=== PATIENT | male | born 1965 | race Caucasian/White ===

== ENCOUNTER → 2016-12-27 | Outpatient (CLI) | payer BC ==
[2015-11-02 16:36] VITALS: BP 145/87
[~2016-12-27] MED LIST: ALBUTEROL0.83 MG/ML IH; AMOXICILLIN 8751 TAB PO; HCTZ 25MG25 MG PO; LISINOPRIL40 MG PO; NORCO 325 MG-51 TA1 PO; NORCO 325 MG-51 TAB PO; TESSALON PERLE200 MG PO; TUSS PO; TUSSIN DM 10 M118 ML; ULTRAM 50MG TAB50 MG PO; ZOCOR 20MG20 MG
== END ==
LOC: RAD 09:52
DX: R06.02 Shortness of breath (principal); R05 Cough

== ENCOUNTER → 2017-01-15 | Outpatient (CLI) | payer BC ==
[~2017-01-15] VITALS: Ht 180.3 cm; Wt 93.2 kg
[2017-01-15 17:28] VITALS: BP 140/100
== END ==
LOC: AMSURD 17:21
DX: R00.2 Palpitations (principal)

== ENCOUNTER → 2017-01-16 | Outpatient (CLI) | payer BC ==
[2017-01-15 17:28] VITALS: BP 140/100
== END ==
LOC: RAD 11:01
DX: M25.511 Pain in right shoulder (principal)

== ENCOUNTER 2017-03-04 12:25 | Emergency (ER) | payer BC ==
[~2017-03-04] VITALS: Ht 180.3 cm; Wt 92.7 kg
[~2017-03-04 12:25] MED LIST changes: -NORCO 325 MG-51 TA1 PO
[2017-03-04] MEDS ORDERED: NORCO 325 MG-51 TA1 PO (13:46)
[2017-03-04 14:00] VITALS: BP 145/88
== END 2017-03-04 13:48 | disposition home or self-care (01) ==
LOC: ED 12:25
DX: R07.89 Other chest pain (principal); M79.622 Pain in left upper arm; I10 Essential (primary) hypertension; E78.5 Hyperlipidemia, unspecified; R42 Dizziness and giddiness

== ENCOUNTER 2018-01-06 14:48 | Inpatient (IN) | payer BC ==
[~2018-01-06] VITALS: Ht 180.3 cm; Wt 97.1 kg
[~2018-01-06 14:48] MED LIST changes: +ADVIL 200MG TA200 MG PO; +ASPIRIN E.C. 8181 MG PO; +CYCLOBENZAPRINE10 M1 PO; +EC-NAPROSYN500 MG PO; +NORCO 325 MG-51 TA1 PO
[2018-01-06 15:20] LABS: BASO # 0.1 (0.02-0.10); EOS # 0.1 (0.04-0.40); EOS % 1.4 % (0.0-4.0); HEMATOCRIT 45.2 % (42.0-52.0); HEMOGLOBIN 15.7 g/dL (13.5-18.0); LYMPH# 2.4 (1.50-4.00); MEAN CELL VOLUME 87 fl (78-100); MEAN CORPUSCULAR HEMOGLOBIN 30 pg (27-31); MEAN CORPUSCULAR HGB CONC 35 g/dL (33-37); MEAN PLATELET VOLUME 10.1 fl (7.4-10.4); MONO # 0.7 (0.20-0.80); NEU # 4.1 (1.40-6.50); PLATELET COUNT 293 K/mm3 (130-400); RED CELL DISTRIBUTION WIDTH 13.1 % (11.5-14.5); WHITE BLOOD COUNT 7.3 K/mm3 (4.8-10.8)
[2018-01-06] MEDS ORDERED: LOSARTAN POTAS100 MG PO (15:29)
[2018-01-06] MEDS ORDERED: TRAMADOL 50 MG TAB PO (15:29)
[2018-01-06 15:33] LABS: ALBUMIN 4.4 g/dL (3.5-5.0); BUN/CREATININE RATIO 9.3 (6.0-26.0); CALCIUM 8.8 mg/dL (8.4-10.2); POTASSIUM 3.7 mmol/L (3.6-5.0); TOTAL BILIRUBIN 0.9 mg/dL (0.2-1.3); TOTAL PROTEIN 8.2 g/dL (6.3-8.2)
[2018-01-06 17:00] VITALS: BP 142/106
[2018-01-06 17:14] VITALS: BP 142/106
--- NOTE | 2018-01-06 17:49 | NUR ---
Pt admitted to room 208. Oriented to room and surroundings. Pt reports pain is minimal and tolerable. IV fluids infusing as ordered. Pt updated on NPO status and plan care.
[2018-01-06 18:42] VITALS: BP 144/46
[2018-01-06 23:00] VITALS: BP 153/99
[2018-01-07] VITALS (7 sets, daily range): BP systolic 146–167; BP diastolic 87–102
[2018-01-07 07:04] LABS: URINE COLOR YELLOW
[2018-01-07 07:05] LABS: PH-URINE 5.5 (5.0 - 8.0); URINE APPEARANCE HAZY; URINE BILIRUBIN NEGATIVE (NEGATIVE); URINE BLOOD NEGATIVE (NEGATIVE); URINE GLUCOSE NEGATIVE (NEGATIVE); URINE KETONE NEGATIVE (NEGATIVE); URINE LEUKOCYTE ESTERASE NEGATIVE (NEGATIVE); URINE MUCUS PRESENT (NOT PRESENT); URINE NITRATE NEGATIVE (NEGATIVE); URINE PROTEIN(semi-quant) TRACE mg/dL (NEGATIVE); URINE UROBILINOGEN NORMAL (NORMAL)
--- NOTE | 2018-01-07 08:11 | NUR ---
Assessment complete. Patient resting in bed, c/o pain (headache) medication given, see EMAR. Bed in lowest position, call light within reach. Will cont to monitor.
[2018-01-07 08:19] LABS: BASO # 0.1 (0.02-0.10); EOS # 0.2 (0.04-0.40); EOS % 2.2 % (0.0-4.0); HEMATOCRIT 41.6 % (42.0-52.0); HEMOGLOBIN 14.6 g/dL (13.5-18.0); LYMPH# 2.1 (1.50-4.00); MEAN CELL VOLUME 88 fl (78-100); MEAN CORPUSCULAR HEMOGLOBIN 31 pg (27-31); MEAN CORPUSCULAR HGB CONC 35 g/dL (33-37); MEAN PLATELET VOLUME 10.9 fl (7.4-10.4); MONO # 0.5 (0.20-0.80); NEU # 3.8 (1.40-6.50); PLATELET COUNT 263 K/mm3 (130-400); RED BLOOD COUNT 4.72 M/mm3 (4.20-5.60); RED CELL DISTRIBUTION WIDTH 13.1 % (11.5-14.5); WHITE BLOOD COUNT 6.7 K/mm3 (4.8-10.8)
[2018-01-07 08:37] LABS: BUN/CREATININE RATIO 13.9 (6.0-26.0); CALCIUM 8.5 mg/dL (8.4-10.2); POTASSIUM 3.6 mmol/L (3.6-5.0)
--- NOTE | 2018-01-07 13:06 | NUR ---
Denies pain at this time. IVF cont into LFA. Able to voice wants/needs, none at this time. Patient up in chair eating at watching tv. Call light within reach. Will cont to monitor.
--- NOTE | 2018-01-07 18:37 | NUR ---
Bed side shift report given to LINDA Hodge. Patient safety checks performed at this time.
--- NOTE | 2018-01-07 18:54 | NUR ---
Bed side shift report given to LINDA Buck. Patient safety checks performed at this time.
--- NOTE | 2018-01-07 19:26 | NUR ---
Bedside shift report received from Hannah OG. Patient having abdominal pain at shift handoff. Center of abdomen near belly button. Tums taken. States it is somewhat better now. Was 02/13. IVF of LR infusing at 125 ML/HR. Site patent. BS + x all quads. Assessment completed. Reviewed medications available. Denies wants or needs. Bed alarm on. Call light in reach.
--- NOTE | 2018-01-07 20:05 | NUR ---
Ambulated in hallways. Requests analgesic. States pain is "just not going away". No nausea. 11/13. "like you got hit in the stomach with a baseball". States ambulation did not cause pain to increase, "actually it made it a little better". Denies further wants or needs.
--- NOTE | 2018-01-07 20:56 | NUR ---
Reports pain down to 07/16. Denies needs. Visiting with .
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
--- NOTE | 2018-01-07 23:59 | NUR ---
Report to Lindsay OG.
[2018-01-08 02:39] VITALS: BP 156/100
[2018-01-08 06:30] VITALS: BP 155/100
--- NOTE | 2018-01-08 08:35 | NUR ---
PATIENT WAS ABLE TO EAT ABOUT 50% OF BREAKFAST AND THEN STOPPED HIS ABDOMINAL PAIN WAS STARTING TO COME BACK, BEFORE BREAKFAST HE HAD NO ABDOMINAL PAIN, HE NOW C/O 5/10 TO MID ABDOMEN, TRAY REMOVED FROM ROOM AND PATIENT IS RESTING NOW IN RECLINER, DENIES ANY NAUSEA, WILL CONTINUE TO MONITOR
[2018-01-08] MEDS ORDERED: ACETAMINOPHEN-H1 TA2 PO (09:34)
[2018-01-08] MEDS ORDERED: ZOFRAN ODT8 M1 PO (09:35)
--- NOTE | 2018-01-08 09:59 | NUR ---
DISCHARGE INSTRUCTIONS DISCUSSED WITH PT. THIS NURSE EXPLAINS THE BRAT DIET TO PT AND THAT PT WILL HAVE TO SLOWLY INTRODUCE NEW FOODS. PT VERBALIZES UNDERSTANDING. ORDERED MEDICATIONS DISCUSSED, PT VERBALIZES UNDERSTANDING ON THE USE OF THESE MEDICATIONS. NO OTHER NEEDS NOTED AT THIS TIME. INSYTE REMOVED. PT DC'D TO HOME VIA AMBULATION.
--- NOTE | 2018-01-08 10:10 | NUR ---
PT FOUND SITTING UP IN CHAIR. STATES HE IS HAVING SLIGHT STOMACH PAIN RATED AT A 2/10 AT THIS TIME. C/O HEADACHE THAT HE BELIEVES IS RELATED TO CAFFINE. STATES THE EXCEDRIN HELPED A LITTLE BIT. DENIES ANY OTHER NEEDS AND IS READY TO GO HOME TODAY.
== END 2018-01-08 10:05 | disposition home or self-care (01) | DRG 390 ==
LOC: ED 14:48 → MED/SURG 16:42
PROVIDERS: ADMIT Physician Assistant
DX: K56.7 Ileus, unspecified (principal); I10 Essential (primary) hypertension
CPT/HCPCS: C9113; J1885; J3010; J7030; J7120

== ENCOUNTER → 2018-04-20 | Outpatient (CLI) | payer BC ==
[~2018-04-20] MED LIST changes: +ACETAMINOPHEN-H1 TA2 PO; +LOSARTAN POTAS100 MG PO; +TRAMADOL 50 MG TAB PO; +ZOFRAN ODT8 M1 PO
== END ==
LOC: RAD 11:02
DX: R05 Cough (principal)

== ENCOUNTER → 2019-11-09 | Outpatient (CLI) | payer BC | LOC: RAD 17:26 | DX: M18.12 Unilateral primary osteoarthritis of first carpometacarpal joint, left hand (principal); M85.48 Solitary bone cyst, other site ==

== ENCOUNTER → 2020-02-09 | Outpatient (CLI) | payer BC | LOC: RAD 12:09 | DX: R20.0 Anesthesia of skin (principal); M79.605 Pain in left leg; M25.562 Pain in left knee; M17.12 Unilateral primary osteoarthritis, left knee ==

== ENCOUNTER → 2020-02-18 | Outpatient (CLI) | payer BC | LOC: RAD 11:32 | DX: M47.816 Spondylosis without myelopathy or radiculopathy, lumbar region (principal); M51.36 Other intervertebral disc degeneration, lumbar region; M17.12 Unilateral primary osteoarthritis, left knee ==

== ENCOUNTER → 2020-02-22 | Outpatient (CLI) | payer BC | LOC: LAB 08:21 | DX: R19.7 Diarrhea, unspecified (principal); R68.83 Chills (without fever); Z20.828 Contact with and (suspected) exposure to other viral communicable diseases ==

== ENCOUNTER → 2020-06-23 | Outpatient (CLI) | payer BC ==
[2020-06-23 17:12] LABS: EOS # 0.1 (0.04-0.40); HEMATOCRIT 48.9 % (42.0-52.0); HEMOGLOBIN 16.8 g/dL (13.5-18.0); LYMPH# 2.2 (1.50-4.00); MEAN CELL VOLUME 89 fl (78-100); MEAN CORPUSCULAR HEMOGLOBIN 31 pg (27-31); MEAN CORPUSCULAR HGB CONC 34 g/dL (33-37); MEAN PLATELET VOLUME 9.8 fl (7.4-10.4); MONO # 0.6 (0.20-0.80); PLATELET COUNT 299 K/mm3 (130-400); RED BLOOD COUNT 5.47 M/mm3 (4.20-5.60); RED CELL DISTRIBUTION WIDTH 12.4 % (11.5-14.5); WHITE BLOOD COUNT 7.9 K/mm3 (4.8-10.8)
[2020-06-23 18:06] LABS: ERYTHROCYTE SEDIMENTATION RATE 4 mm/hr (0-20)
== END ==
LOC: AMSURD 16:57 → LAB 16:57
PROVIDERS: Family Medicine
DX: R07.9 Chest pain, unspecified (principal); R00.1 Bradycardia, unspecified

== ENCOUNTER → 2020-12-25 | Outpatient (CLI) | payer BC ==
[~2020-12-25] MED LIST changes: +METOPROLOL SUC100 M1 PO
[2020-12-25 17:34] VITALS: BP 156/95
== END ==
LOC: AMSURD 16:58
DX: K21.9 Gastro-esophageal reflux disease without esophagitis (principal)

== ENCOUNTER 2021-04-11 17:15 | Emergency (ER) | payer BC ==
[~2021-04-11] VITALS: Ht 180.3 cm; Wt 100.0 kg
[~2021-04-11 17:15] MED LIST changes: -METOPROLOL SUC100 M1 PO
[2021-04-11] MEDS ORDERED: METOPROLOL SUC100 M1 PO (17:28)
[2021-04-11] MEDS ORDERED: TRAMADOL 50 MG TAB PO (17:28)
[2021-04-11 17:56] LABS: BASO # 0.06 K/mm3 (0.02-0.10); EOS # 0.27 K/mm3 (0.04-0.40); EOS % 3.4 % (0.0-4.0); HEMOGLOBIN 15.6 g/dL (13.5-18.0); LYMPH# 2.69 K/mm3 (1.50-4.00); MEAN CELL VOLUME 91 fl (78-100); MEAN CORPUSCULAR HEMOGLOBIN 32 pg (27-31); MEAN CORPUSCULAR HGB CONC 36 g/dL (33-37); MEAN PLATELET VOLUME 10.4 fl (7.4-10.4); NEU # 4.23 K/mm3 (1.40-6.50); PLATELET COUNT 253 K/mm3 (130-400); RED BLOOD COUNT 4.85 M/mm3 (4.20-5.60); RED CELL DISTRIBUTION WIDTH 11.9 % (11.5-14.5)
[2021-04-11 18:11] LABS: POTASSIUM 4.5 mmol/L (3.5-5.1); SODIUM 139 mmol/L (136-145)
[2021-04-11 18:13] LABS: CALCIUM 9.9 mg/dL (8.3-10.5); GLUCOSE 98 mg/dL (75-110)
[2021-04-11 18:15] LABS: CARBON DIOXIDE 25 mmol/L (22-29)
[2021-04-11 18:29] LABS: D-DIMER 0.37 mg/L FEU (0.15-0.50); TROPONIN-I < 0.03 ng/mL (<0.030)
[2021-04-11 20:17] VITALS: BP 148/89
== END 2021-04-11 20:25 | disposition home or self-care (01) ==
LOC: ED 17:15
PROVIDERS: Physician Assistant
DX: I10 Essential (primary) hypertension (principal); R07.89 Other chest pain; Z20.822 Contact with and (suspected) exposure to COVID-19; Z79.899 Other long term (current) drug therapy
CPT/HCPCS: J1885

== ENCOUNTER → 2021-05-16 | Outpatient (CLI) | payer BC ==
[~2021-05-16] MED LIST changes: +METOPROLOL SUC100 M1 PO
== END ==
LOC: RAD 12:25
DX: M79.641 Pain in right hand (principal)

== ENCOUNTER → 2021-06-14 | Outpatient (CLI) | payer BC ==
[2021-06-14 11:54] LABS: BASO # 0.06 K/mm3 (0.02-0.10); EOS # 0.15 K/mm3 (0.04-0.40); EOS % 1.8 % (0.0-4.0); HEMATOCRIT 47.2 % (42.0-52.0); HEMOGLOBIN 16.3 g/dL (13.5-18.0); LYMPH# 2.64 K/mm3 (1.50-4.00); MEAN CELL VOLUME 92 fl (78-100); MEAN CORPUSCULAR HEMOGLOBIN 32 pg (27-31); MEAN CORPUSCULAR HGB CONC 35 g/dL (33-37); MEAN PLATELET VOLUME 9.9 fl (7.4-10.4); NEU # 4.51 K/mm3 (1.40-6.50); PLATELET COUNT 287 K/mm3 (130-400); RED BLOOD COUNT 5.13 M/mm3 (4.20-5.60); WHITE BLOOD COUNT 8.2 K/mm3 (4.8-10.8)
[2021-06-14 12:02] LABS: ALBUMIN 4.4 g/dL (3.5-5.0); POTASSIUM 4.7 mmol/L (3.5-5.1)
[2021-06-14 12:03] LABS: CALCIUM 9.2 mg/dL (8.3-10.5)
[2021-06-14 12:04] LABS: TOTAL PROTEIN 7.4 g/dL (6.4-8.3)
[2021-06-14 12:06] LABS: TOTAL BILIRUBIN 0.5 mg/dL (0.2-1.2)
== END ==
LOC: LAB 11:31
PROVIDERS: Nurse Practitioner
DX: R10.9 Unspecified abdominal pain (principal)

== ENCOUNTER → 2022-02-11 | Outpatient (CLI) | payer BC ==
[2022-02-11 14:23] LABS: ALBUMIN 4.2 g/dL (3.5-5.0)
[2022-02-11 14:25] LABS: TOTAL PROTEIN 6.9 g/dL (6.4-8.3)
[2022-02-11 14:27] LABS: TOTAL BILIRUBIN 0.4 mg/dL (0.2-1.2)
[2022-02-11 14:30] LABS: DIRECT BILIRUBIN 0.2 mg/dL (0.0-0.5)
== END ==
LOC: LAB 13:59
PROVIDERS: Internal Medicine Interventional Cardiology
DX: E78.5 Hyperlipidemia, unspecified (principal); Z79.899 Other long term (current) drug therapy

== ENCOUNTER → 2022-02-15 | Outpatient (CLI) | payer BC ==
[2022-02-15 09:50] LABS: ALBUMIN 4.2 g/dL (3.5-5.0)
[2022-02-15 09:53] LABS: TOTAL PROTEIN 7.1 g/dL (6.4-8.3)
[2022-02-15 09:55] LABS: TOTAL BILIRUBIN 0.4 mg/dL (0.2-1.2)
[2022-02-15 09:58] LABS: DIRECT BILIRUBIN 0.2 mg/dL (0.0-0.5)
== END ==
LOC: LAB 08:59 → AMSURD 08:59
PROVIDERS: Family Medicine
DX: M17.12 Unilateral primary osteoarthritis, left knee (principal); R00.2 Palpitations; R09.81 Nasal congestion; I10 Essential (primary) hypertension; E78.2 Mixed hyperlipidemia; M25.50 Pain in unspecified joint

== ENCOUNTER 2022-04-01 16:25 | Emergency (ER) | payer BC ==
[2022-04-01] MEDS ORDERED: MELOXICAM15 MG PO (16:34)
[2022-04-01] MEDS ORDERED: ROSUVASTATIN CA20 MG PO (16:34)
[2022-04-01] MEDS ORDERED: CARVEDILOL25 MG PO (16:34)
[2022-04-01] MEDS ORDERED: FENOFIBRATE48 MG PO (16:34)
[2022-04-01 16:53] LABS: BASO # 0.07 K/mm3 (0.02-0.10); EOS # 0.34 K/mm3 (0.04-0.40); EOS % 3.7 % (0.0-4.0); HEMATOCRIT 43.4 % (42.0-52.0); HEMOGLOBIN 15.1 g/dL (13.5-18.0); LYMPH# 2.89 K/mm3 (1.50-4.00); MEAN CELL VOLUME 90 fl (78-100); MEAN CORPUSCULAR HEMOGLOBIN 31 pg (27-31); MEAN CORPUSCULAR HGB CONC 35 g/dL (33-37); MEAN PLATELET VOLUME 9.9 fl (7.4-10.4); MONO # 0.81 K/mm3 (0.20-0.80); NEU # 5.07 K/mm3 (1.40-6.50); PLATELET COUNT 285 K/mm3 (130-400); RED BLOOD COUNT 4.81 M/mm3 (4.20-5.60); RED CELL DISTRIBUTION WIDTH 11.9 % (11.5-14.5); WHITE BLOOD COUNT 9.2 K/mm3 (4.8-10.8)
[2022-04-01 17:01] LABS: POTASSIUM 4.6 mmol/L (3.5-5.1); SODIUM 136 mmol/L (136-145)
[2022-04-01 17:02] LABS: CALCIUM 8.9 mg/dL (8.3-10.5)
[2022-04-01 17:03] LABS: GLUCOSE 91 mg/dL (75-110); TOTAL PROTEIN 6.7 g/dL (6.4-8.3)
[2022-04-01 17:04] LABS: CARBON DIOXIDE 23 mmol/L (22-29)
[2022-04-01 17:05] LABS: TOTAL BILIRUBIN 0.5 mg/dL (0.2-1.2)
[2022-04-01 17:09] LABS: AST-SGOT 16 U/L (5-34)
[2022-04-01 17:10] LABS: ALT/SGPT 23 U/L (0-55)
[2022-04-01 17:18] LABS: TROPONIN-I < 0.030 ng/mL (<0.030)
[2022-04-01 17:31] LABS: PARTIAL THROMBOPLASTIN TIME 22.2 SECONDS (21.0-32.0); PROTHROMBIN TIME 10.1 SECONDS (9.0-12.0)
[2022-04-01 17:50] LABS: D-DIMER 0.35 mg/L FEU (0.15-0.50)
[2022-04-01 18:14] LABS: URINE WBC 0 /hpf (0-3)
[2022-04-01 18:29] LABS: URINE APPEARANCE CLEAR; URINE BILIRUBIN NEGATIVE (NEGATIVE); URINE BLOOD NEGATIVE (NEGATIVE); URINE COLOR YELLOW; URINE GLUCOSE NEGATIVE (NEGATIVE); URINE KETONE NEGATIVE (NEGATIVE); URINE LEUKOCYTE ESTERASE NEGATIVE (NEGATIVE); URINE MUCUS PRESENT (NOT PRESENT); URINE NITRATE NEGATIVE (NEGATIVE); URINE PROTEIN(semi-quant) TRACE (NEGATIVE); URINE UROBILINOGEN NORMAL (NORMAL)
[2022-04-01 20:45] VITALS: BP 145/84
== END 2022-04-01 20:46 | disposition home or self-care (01) ==
LOC: ED 16:25
PROVIDERS: Nurse Practitioner
DX: R07.89 Other chest pain (principal); Z98.61 Coronary angioplasty status; Z20.822 Contact with and (suspected) exposure to COVID-19
CPT/HCPCS: J7030

== ENCOUNTER 2022-10-08 14:43 | Emergency (ER) | payer BC ==
[~2022-10-08] VITALS: Ht 180.3 cm; Wt 109.1 kg
[~2022-10-08 14:43] MED LIST changes: +CARVEDILOL25 MG PO; +FENOFIBRATE48 MG PO; +MELOXICAM15 MG PO; +ROSUVASTATIN CA20 MG PO
[2022-10-08] MEDS ORDERED: ISOSORBIDE MONO60 M2 PO (14:57)
[2022-10-08] MEDS ORDERED: CLOPIDOGREL75 M2 PO (14:57)
[2022-10-08 15:21] LABS: BASO # 0.04 K/mm3 (0.02-0.10); EOS % 2.3 % (0.0-4.0); HEMOGLOBIN 15.3 g/dL (13.5-18.0); LYMPH# 2.37 K/mm3 (1.50-4.00); MEAN CELL VOLUME 92 fl (78-100); MEAN CORPUSCULAR HEMOGLOBIN 32 pg (27-31); MEAN CORPUSCULAR HGB CONC 35 g/dL (33-37); MEAN PLATELET VOLUME 9.7 fl (7.4-10.4); MONO # 0.79 K/mm3 (0.20-0.80); PLATELET COUNT 288 K/mm3 (130-400); RED BLOOD COUNT 4.81 M/mm3 (4.20-5.60); RED CELL DISTRIBUTION WIDTH 12.1 % (11.5-14.5); WHITE BLOOD COUNT 8.5 K/mm3 (4.8-10.8)
[2022-10-08 15:24] LABS: ALBUMIN 4.2 g/dL (3.5-5.0); POTASSIUM 4.3 mmol/L (3.5-5.1); SODIUM 140 mmol/L (136-145)
[2022-10-08 15:25] LABS: CALCIUM 9.6 mg/dL (8.3-10.5)
[2022-10-08 15:27] LABS: GLUCOSE 89 mg/dL (75-110); TOTAL PROTEIN 6.9 g/dL (6.4-8.3)
[2022-10-08 15:28] LABS: CARBON DIOXIDE 24 mmol/L (22-29); TOTAL BILIRUBIN 0.4 mg/dL (0.2-1.2)
[2022-10-08 15:32] LABS: AST-SGOT 14 U/L (5-34)
[2022-10-08 15:33] LABS: ALT/SGPT 22 U/L (0-55)
[2022-10-08 15:52] LABS: TROPONIN-I < 0.030 ng/mL (<0.030)
[2022-10-08 17:08] VITALS: BP 153/103
== END 2022-10-08 17:10 | disposition home or self-care (01) ==
LOC: ED 14:43
PROVIDERS: Physician Assistant
DX: R07.89 Other chest pain (principal); R06.02 Shortness of breath; E78.5 Hyperlipidemia, unspecified; Z79.890 Hormone replacement therapy
CPT/HCPCS: J1885

== ENCOUNTER 2023-06-03 05:13 | Emergency (ER) | payer BC ==
[~2023-06-03] VITALS: Ht 180.3 cm; Wt 108.1 kg
[~2023-06-03 05:13] MED LIST changes: +ASPIRIN E.C. 8181 MG; +BETAMETHASONE D0.05% TOP; +CARDENE 20MG CA20 M1 PO; +CLOPIDOGREL75 M2 PO; +DRAMAMINE LESS25 MG PO; +GOOD NEIGHBOR P20 MG PO; +ISOSORBIDE MONO60 M2 PO; +NITROGLYCERIN0.4 M1 SL; +PANTOPRAZOLE SO40 MG PO; +PROAIR HFA0.09 MG/AC IH; +VALACYCLOVIR1 GM PO; +ZOFRAN ODT4 MG PO
[2023-06-03] MEDS ORDERED: PREDNISONE10 MG PO (06:40)
[2023-06-03] MEDS ORDERED: EPINEPHRIN0.3 MG/0.3 IJ (06:41)
[2023-06-03 06:48] VITALS: BP 150/99
== END 2023-06-03 06:48 | disposition home or self-care (01) ==
LOC: ED 05:13
DX: L50.9 Urticaria, unspecified (principal)
CPT/HCPCS: J7512

== ENCOUNTER → 2023-07-24 | Outpatient (CLI) | payer BC ==
[~2023-07-24] MED LIST changes: +EPINEPHRIN0.3 MG/0.3 IJ; +PREDNISONE10 MG PO
[2023-07-24 10:42] LABS: CALCIUM 9.4 mg/dL (8.3-10.5)
== END ==
LOC: LAB 09:48
PROVIDERS: Family Medicine
DX: I10 Essential (primary) hypertension (principal); R73.03 Prediabetes

== ENCOUNTER → 2023-08-07 | Outpatient (CLI) | payer BC | LOC: RAD 19:18 | DX: G52.8 Disorders of other specified cranial nerves (principal) | CPT/HCPCS: A9575 ==

== ENCOUNTER → 2023-08-26 | Outpatient (CLI) | payer BC ==
[~2023-08-26] MED LIST changes: +NEURONTIN300 MG/CAP
== END ==
LOC: RAD 09:35
DX: M51.16 Intervertebral disc disorders with radiculopathy, lumbar region (principal); M47.27 Other spondylosis with radiculopathy, lumbosacral region

== ENCOUNTER 2023-12-02 14:26 | Emergency (ER) | payer BC ==
[~2023-12-02 14:26] MED LIST changes: +Acetaminophen 325 MG TAB PO ONE
== END 2023-12-02 15:40 | disposition home or self-care (01) ==
LOC: ED 14:26
DX: S09.90XA Unspecified injury of head, initial encounter (principal); X58.XXXA Exposure to other specified factors, initial encounter

== ENCOUNTER → 2023-12-17 | Outpatient (CLI) | payer BC ==
[~2023-12-17] MED LIST changes: -Acetaminophen 325 MG TAB PO ONE
[2023-12-17 12:38] LABS: BASO # 0.02 K/mm3 (0.02-0.10); EOS # 0.13 K/mm3 (0.04-0.40); EOS % 1.4 % (0.0-4.0); HEMATOCRIT 54.2 % (42.0-52.0); HEMOGLOBIN 18.9 g/dL (13.5-18.0); LYMPH# 1.82 K/mm3 (1.50-4.00); MEAN CELL VOLUME 89 fl (78-100); MEAN CORPUSCULAR HEMOGLOBIN 31 pg (27-31); MEAN CORPUSCULAR HGB CONC 35 g/dL (33-37); MEAN PLATELET VOLUME 9.9 fl (7.4-10.4); PLATELET COUNT 320 K/mm3 (130-400); RED BLOOD COUNT 6.08 M/mm3 (4.20-5.60); RED CELL DISTRIBUTION WIDTH 12.4 % (11.5-14.5); WHITE BLOOD COUNT 9.4 K/mm3 (4.8-10.8)
[2023-12-17 12:45] LABS: ALBUMIN 4.8 g/dL (3.5-5.0)
[2023-12-17 12:47] LABS: CALCIUM 10.1 mg/dL (8.3-10.5)
[2023-12-17 12:48] LABS: TOTAL PROTEIN 8.1 g/dL (6.4-8.3)
[2023-12-17 12:50] LABS: TOTAL BILIRUBIN 0.7 mg/dL (0.2-1.2)
[2023-12-17 13:11] LABS: PH-URINE 6.5 (5.0 - 8.0); URINE APPEARANCE CLEAR (CLEAR); URINE BILIRUBIN NEGATIVE (NEGATIVE); URINE BLOOD NEGATIVE (NEGATIVE); URINE COLOR YELLOW (YELLOW); URINE GLUCOSE NEGATIVE (NEGATIVE); URINE KETONE NEGATIVE (NEGATIVE); URINE LEUKOCYTE ESTERASE NEGATIVE (NEGATIVE); URINE MUCUS PRESENT (NOT PRESENT); URINE NITRATE NEGATIVE (NEGATIVE); URINE PROTEIN(semi-quant) NEGATIVE (NEGATIVE); URINE WBC 0-1 /hpf (0-3)
== END ==
LOC: LAB 11:47
PROVIDERS: Nurse Practitioner Family
DX: R10.9 Unspecified abdominal pain (principal)

== ENCOUNTER → 2023-12-22 | Outpatient (CLI) | payer BC | LOC: LAB 12:13 | DX: E11.9 Type 2 diabetes mellitus without complications (principal) ==

== ENCOUNTER → 2023-12-30 | Outpatient (CLI) | payer BC ==
[~2023-12-30] MED LIST changes: +Gadoterate 20 ML VIAL IV ONE
== END ==
LOC: RAD 08:37
DX: D32.0 Benign neoplasm of cerebral meninges (principal)
CPT/HCPCS: A9575

== ENCOUNTER → 2024-05-31 | Outpatient (CLI) | payer BC ==
[~2024-05-31] MED LIST changes: -Gadoterate 20 ML VIAL IV ONE
[2024-05-31 17:52] LABS: BASO # 0.07 K/mm3 (0.02-0.10); EOS # 0.59 K/mm3 (0.04-0.40); EOS % 7.1 % (0.0-4.0); HEMATOCRIT 48.4 % (42.0-52.0); HEMOGLOBIN 16.5 g/dL (13.5-18.0); MEAN CELL VOLUME 90 fl (78-100); MEAN CORPUSCULAR HEMOGLOBIN 31 pg (27-31); MEAN CORPUSCULAR HGB CONC 34 g/dL (33-37); MEAN PLATELET VOLUME 9.7 fl (7.4-10.4); MONO # 0.88 K/mm3 (0.20-0.80); NEU # 4.62 K/mm3 (1.40-6.50); PLATELET COUNT 317 K/mm3 (130-400); RED BLOOD COUNT 5.38 M/mm3 (4.20-5.60); RED CELL DISTRIBUTION WIDTH 12.1 % (11.5-14.5); WHITE BLOOD COUNT 8.3 K/mm3 (4.8-10.8)
[2024-05-31 17:58] LABS: CALCIUM 9.8 mg/dL (8.3-10.5)
== END ==
LOC: LAB 17:34
PROVIDERS: Nurse Practitioner Family
DX: R06.00 Dyspnea, unspecified (principal); Z20.822 Contact with and (suspected) exposure to COVID-19

== ENCOUNTER → 2024-08-13 | Outpatient (CLI) | payer BC ==
[2024-08-13 11:40] LABS: ALBUMIN 4.2 g/dL (3.5-5.0)
[2024-08-13 11:41] LABS: CALCIUM 9.3 mg/dL (8.3-10.5)
[2024-08-13 11:43] LABS: TOTAL PROTEIN 7.3 g/dL (6.4-8.3)
[2024-08-13 11:44] LABS: TOTAL BILIRUBIN 0.6 mg/dL (0.2-1.2)
[2024-08-13 22:47] LABS: CREATININE OTHER SOURCE 102 mg/dL (47-110)
== END ==
LOC: LAB 11:07
PROVIDERS: Family Medicine
DX: M25.512 Pain in left shoulder (principal); I10 Essential (primary) hypertension; E11.9 Type 2 diabetes mellitus without complications; E78.2 Mixed hyperlipidemia